=== PATIENT | male | born 1950 | race Caucasian/White ===

== ENCOUNTER 2022-11-27 11:51 | Outpatient (CLI) | payer MEDICARE, SELFPAY ==
--- NOTE | ~2022-11-27 | PE_ITS ---
EXAMINATION: PET_PETPSMAST_PT DATE: 11/27/2022 14:48 INDICATION: Malignant neoplasm of the prostate with rising PSA levels TECHNIQUE: 9.49 mCi of pipflufolastat F-18 (18-F-DCFPyL) was administered i.v. Low dose computed joselin ography (CT) images were acquired from the base of the brain to the base of the brain to the proximal thighs for attenuation correction and anatomic localization. Positron emission tomography (PET) imag es were acquired in the same distribution beginning 95 minutes after injection. Images including fuse d PET/CT images were reconstructed in axial, coronal, and sagittal planes. Automated exposure control technique was employed. The dose-length product was 496.24mGy-cm. COMPARISON: None FINDINGS: Head/neck: Typical pattern of symmetric physiologic increased activity in the lacrimal, parotid and submandibula r glands as well as along the mucosa of the nasal and oral cavities, the fabián-, naso- and hypopharynx, the glottis and esophagus. No pathologically enlarged cervical lymphadenopathy or suspicious foci of increased uptake in the visualized head or neck. Chest: Mild dependent atelectasis in bilateral lower lobes. No suspicious pulmonary nodules, pneumonia or pl eural effusion. Cardiomegaly. Small amount of atherosclerotic coronary artery calcific location and a ortic valve calcific is. Thoracic aorta is normal in caliber. No pathologically enlarged or PSMA avid thoracic lymphadenopathy. Abdomen/pelvis/proximal thighs: Physiologic renal accumulation and excretion of activity in the kidneys, bladder and along portions o f ureters. Normal degree and slightly heterogenous pattern of increased uptake throughout the liver a nd spleen without radiologic correlate or dominant PSMA avid lesion. The gallbladder, pancreas and bi lateral adrenal glands are normal. Moderate uptake scattered throughout the bowels with typical duode nal and proximal jejunal predominance and without radiologic correlate, also likely physiologic. Chris ed diverticulosis along the sigmoid and descending colon without adjacent from trace stranding to sug gest diverticulitis. Normal appendix. There is prominent increased PSMA activity throughout the midli ne anterior and right posterior aspect of the enlarged prostate with maximal SUV of 17.4 consistent w ith primary prostate cancer. Small fat-containing right inguinal hernia with postoperative change of prior bilateral inguinal hernia mesh repairs. No other abnormal foci of increased uptake or pathologi ruben enlarged lymphadenopathy in the abdomen, pelvis or proximal thighs. Musculoskeletal: Severe cervical and moderate thoracic and lumbar spondylosis. No suspicious lytic, blastic or PSMA av id bone lesions. IMPRESSION: 1. Prominent increased uptake in the anterior and right posterior aspect of the enlarged prostate con sistent with primary prostate cancer. No evident metastatic disease. Reviewed, dictated and finalized at location A. IMPRESSION: 1. Prominent increased uptake in the anterior and right posterior aspect of the enlarged prostate consistent with primary prostate cancer. No evident metastat ic disease.
== END 2022-11-27 11:52 | disposition home or self-care (01) ==
PROVIDERS: Visit Provider Urology
DX: C61 Malignant neoplasm of prostate (principal)
CPT/HCPCS: 78815; A9595